=== PATIENT | female | born 1945 | race Caucasian/White ===

== ENCOUNTER 2017-07-07 19:53 | Observation (INO) | payer OTHER, MEDICARE ==
[~2017-07-07] VITALS: Ht 152.4 cm; Wt 64.0 kg
--- NOTE | 2017-07-07 20:10 | ED SYNCOPE COMPLAINT ---
History of Present Illness General Chief Complaint: Syncope and Near-Syncope Stated Complaint: BIBA SYNCOPE Source: patient, family Exam Limitations: no limitations Vital Signs & Intake/Output Vital Signs & Intake/Output Vital Signs Date Time Temp Pulse Resp B/P B/P Pulse O2 O2 Flow FiO2 Mean Ox Delivery Rate 07/08 0714 98.1 57 20 122/68 96 Room Air 07/08 0117 97.8 71 20 118/76 96 Room Air 07/08 0021 98.4 67 20 137/67 98 Room Air 07/07 2218 Room Air 07/07 2022 83 18 113/65 94 Room Air ED Intake and Output 07/08 0000 07/07 1200 Intake Total Output Total Balance Patient 141 lb Weight Weight Reported by Patient Measurement Method Allergies Coded Allergies: kiwi (ITCHY THROAT PER PT 07/07/17) Uncoded Allergies: PARSNIP (ITCHY THROAT PER PT 07/07/17) Triage Note: PT BIBA S/P SYNCOPLE EPISODE AT A RESTUARANT. PT WAS HAVING DINNER AND FELT BACK PAIN AND NAUSEOUS. PT GOT UP AT STARTED TO WALK TO [facility] ROOM. FELT LIGHT HEADED AND DIZZY GRABBED WALL AND PASSED OUT. PT FELL TO GROUND AND STRUCK HER HEAD. NO TRAUMA VISIBLE. PT STATES SHE THINKS SHE WAS PASSED OUT FOR 1 MIN AND STAFF WENT TO GET FAMILY. PT WAS PICKED UP AND SHE STATED TO FAMILY SHE WAS NAUSEOUS AND SO FAMILY BROUGHT HER TO BATHROOM VIOLENTLY VOMITTED AND PASSED OUT AGAIN FOR ABOUT 15 SECONDS PER FAMILY. WHEN PT CAME TO SHE VOMITTED AGAIN BUT DID NOT HAVE A SYNCOPLE EPISODE AGAIN. PT DENIES BLOOD THINNERS. PT DOES STATE THAT SHE WAS RECENTLY ON A DIURECTIC AND SHE VOIDED 2LBS OF URINE. PT WAS OUT OF COUNTRY IN [facility] AND RETURNED ON THURSDAY NIGHT. Triage Nurses Notes Reviewed? yes Timing: multiple episodes today Precipitating Factors: lightheadedness, NAUSEA, BACKPAIN HPI: PATIENT IS A 71 Y/O FEMALE, PMH OF BREAST CANCER, CHRONIC FATIGUE SYNDROME, PVC, HTN, AND HLD, PRESENTING FOR 2 EPISODES OF SYNCOPE AT DINNER. PATIENT STATES THAT SHE FELT NAUSEOUS AND HAD BACK PAIN PRIOR TO THE EVENT, SHE WALKED TO THE BATHROOM AND LOST CONSCIOUSNESS, HITTING HER HEAD ON THE FLOOR. PER HER SHE WAS UNCONSCIOUS FOR AROUND 1-2 MINUTES, WOKE UP AND VOMITED. SHE THEN PASSED OUT A SECOND TIME FOR 15 SECONDS AND WOKE UP AND VOMITED AGAIN. PER , PATIENT WAS A&O X3 IMMEDIATELY AFTER THE EVENT. SHE DENIES BLADDER/BOWEL INCONTINENCE AND SEIZURE-LIKE ACTIVITY SHE DENIES ANY CHEST PAIN, SOB, PALPITATIONS, HEADACHE, DIZZINESS, ABDOMINAL PAIN, DIARRHEA, CONSTIPATION, AND DYSURIA. PATIENT REPORTS THAT SHE RETURNS FROM [facility] ON THURSDAY AFTER A 2 WEEK STAY. SHE STATES THAT SHE FELT BLOATED SO SHE TOOK HER DIURETIC THURSDAY NIGHT WHICH SHE ONLY TAKES 4-5 TIMES A YEAR. SINCE THURSDAY SHE HAS HAD INCREASED URINATION AND HAS LOST 2 POUNDS. (Librado Lozano) Reconcile Medications Anastrozole 1 MG TABLET 1 TAB PO DAILY Breast CA (Reported) Aspirin (Aspirin*) 81 MG TAB.CHEW 1 TAB PO DAILY Heart Health Hydrochlorothiazide 12.5 MG CAPSULE 1 CAP PO DAILY HTN Rosuvastatin Calcium (Crestor) 10 MG TABLET 1 TAB PO DAILY 10 (Reported) Valsartan 80 MG TABLET 1 TAB PO DAILY HTN (Reported) Zolpidem Tartrate 10 MG TABLET 1 HTAB PO QPMP PRN Insomnia (Reported) (Idalia JASON,Blanca) Past History Travel History Traveled to [place] past [place] No Medical History Any Pertinent Medical History? see below for history Cardiovascular: hypertension, hyperlipidemia, PVC Cancer(s): breast cancer Surgical History Surgical History: lumpectomy Family History Hx Contributory? No (Librado Lozano) Review of Systems Review of Systems Constitutional: Reports: no symptoms. EENTM: Reports: no symptoms. Respiratory: Reports: no symptoms. Cardiovascular: Reports: no symptoms. GI: Reports: no symptoms. Genitourinary: Reports: no symptoms. Musculoskeletal: Reports: no symptoms. Skin: Reports: no symptoms. Neurological/Psychological: Reports: no symptoms. All Other Systems: Reviewed and Negative (Librado Lozano) Physical Exam Physical Exam General Appearance: well developed/nourished, no apparent distress, alert, awake , comfortable Head: atraumatic, normal appearance Eyes: Bilateral: normal appearance, PERRL, EOMI. Ears, Nose, Throat: normal ENT inspection, hearing grossly normal Neck: normal inspection, full range of motion, no midline tenderness Respiratory: normal breath sounds, chest non-tender, no respiratory distress, lungs clear Cardiovascular: regular rate/rhythm Gastrointestinal: normal bowel sounds, soft, non-tender, no organomegaly Back: normal inspection, normal range of motion, no vertebral tenderness Extremities: normal inspection Cranial Nerves: normal hearing, normal speech, PERRL Coordination/Gait: normal finger to nose Motor/Sensory: no motor/sensory deficits Skin: intact, normal color, warm/dry Core Measures ACS in differential dx? No CVA/TIA Diagnosis: No Sepsis Present: No Sepsis Focused Exam Completed? No (Librado Lozano) Progress Differential Diagnosis: AMI, aortic dissection, aortic valve, drug induced syncope, orthostatic syncope, other valvular disease, pacemaker malfunction, pericardial tamponade, pulmonary embolus, sick sinus syndrome, subarachnoid hem. , TIA/CVA, vasodepressor syncope Plan of Care: Orders Procedure Date/time Status Heart Healthy Diet 07/08 B Active EKG 07/08 0800 Active TROPONIN LEVEL 07/08 0622 Complete BASIC ELECTROLYTES PLUS BUN&CR 07/08 0600 Complete Vital Signs 07/08 0252 Active Teach/Educate 07/08 0252 Active Pain Treatment and Response 07/08 0252 Active Nutritional Intake, Monitor 07/08 0252 Active Isolation 07/08 0252 Active Intake & Output 07/08 0252 Active Patient Care Conference 07/08 0252 Active Activity/Ambulation 07/08 0252 Active LACTIC ACID 07/08 0220 Complete TROPONIN LEVEL 07/08 0200 Complete EKG 07/08 0200 Active Pathway - chart 07/08 0042 Active House Staff 07/08 0042 Active Code Status 07/08 0042 Active Lab Add-on Test 07/08 UNK Active VTE Mechanical Prophylaxis 07/08 UNK Active MISTAKE 07/08 UNK Active Precautions 07/08 UNK Active Nursing Misc 07/08 UNK Active ECHOCARDIOGRAM 07/08 UNK Active Patient Data 07/[address] in observation 07/07 2247 Active ED Holding Orders 07/07 2247 Active Vital Signs 07/07 2247 Active Code Status 07/07 2247 Complete Intake & Output 07/07 2217 Active D-DIMER 07/07 2101 Complete MISTAKE 07/07 2042 Active Add-on Test (ER Only) 07/07 204 Active MAGNESIUM 07/07 2020 Complete LACTIC ACID 07/07 2019 Complete Telemetry/Motor Coach Chauffeur 07/07 195 Active TROPONIN LEVEL 07/07 1955 Complete COMPREHENSIVE METABOLIC PANEL 07/07 1955 Complete CBC WITHOUT DIFFERENTIAL 07/07 1955 Complete EKG 07/07 1955 Active Current Medications Sig/Catalina Start time Last Medication Dose Stop Time Status Admin Atorvastatin Calcium 40 MG 1700 07/08 1700 AC (Lipitor) Enoxaparin Sodium 40 MG DAILY 07/08 1032 AC (Lovenox) Aspirin 81 MG DAILY 07/08 1000 AC 07/08 (Aspirin) 1011 Losartan Potassium 50 MG DAILY 07/08 1000 AC 07/08 (Cozaar) 1013 Laboratory Tests 07/08/17 0800: Troponin I Cancelled 07/08/17 0622: Anion Gap 10, Estimated GFR > 60, BUN/Creatinine Ratio 24.3, Troponin I 0.01 07/08/17 0530: Lactic Acid Cancelled 07/08/17 0418: Lactic Acid Cancelled 07/08/17 0215: Troponin I 0.02 07/08/17 0215: Lactic Acid 0.8 07/07/17 2020: Anion Gap 19 H, Estimated GFR 49 L, BUN/Creatinine Ratio 22.7, Glucose 91, Lactic Acid 3.5 H, Calcium 9.9, Magnesium 2.1, Total Bilirubin 0.2, AST 30, ALT 34, Alkaline Phosphatase 64, Troponin I < 0.01, Total Protein 6.9, Albumin 4.5, Globulin 2.4, Albumin/Globulin Ratio 1.9, D-Dimer High Sensitivty < 200, CBC w Diff NO MAN DIFF REQ, RBC 4.57, MCV 90.2, MCH 30.0, RDW 13.7, MPV 7.4, Gran % 62.5, Lymphocytes % 26.4, Monocytes % 8.3, Eosinophils % 2.4, Basophils % 0.4, Absolute Granulocytes 3.6, Absolute Lymphocytes 1.5, Absolute Monocytes 0.5, Absolute Eosinophils 0.1, Absolute Basophils 0, PUBS MCHC 33.3 Diagnostic Imaging: Viewed by Me: Radiology Read. Discussed w/RAD: Radiology Read. Radiology Impression: PATIENT: CONNIE MANUEL PRESENT AGE: 71 PATIENT ACCOUNT NO: [id number] : 44 LOCATION: [facility] ORDERING PHYSICIAN: Librado HUERTA SERVICE DATE: 07/07/17 EXAM TYPE : RAD - XRY-PORTABLE CHEST XRAY EXAMINATION: CHEST 1 VIEW CLINICAL INFORMATION: Syncope. COMPARISON: None. TECHNIQUE: An AP view of the chest is provided. FINDINGS: The cardiac silhouette is enlarged. The mediastinal and hilar contours are unremarkable. There are neither pleural effusions nor pneumothoraces. There are no consolidations. The osseous structures are unremarkable. IMPRESSION: No evidence for acute disease. Cardiomegaly without vascular congestion. DICTATED BY: Fabrice Weinstein MD DATE/TIME DICTATED:07/07/172057 AEROSPACE PHYSIOLOGICAL TECHNICIAN: KAREEM DATE/TIME TRANSCRIBED:07/07/172057 CONFIDENTIAL, DO NOT COPY WITHOUT APPROPRIATE AUTHORIZATION. <Electronically signed in Other Vendor System> SIGNED BY: Fabrice Weinstein MD 07/07/172107 Initial ED EKG: normal sinus rhythm, rate (83), nonspecific ST T wave chg (Librado Lozano) Departure Departure Condition: Stable Referrals: Saima JASON,Naresh Bowles (PCP/Family) Departure Forms: Customer Survey General Discharge Information Observation Note Rationale for Observation: My rational for observation is as follows . Patient will require cardiac telemetry. Serial troponins. IV fluids. Cardiac consultation. (Librado Lozano) Departure Time of Disposition: 2247 Disposition: STILL A PATIENT Clinical Impression Primary Impression: Syncope and collapse Prescriptions: Current Visit Scripts Hydrochlorothiazide 1 CAP PO DAILY #30 CAP Aspirin (Aspirin*) 1 TAB PO DAILY #30 TAB Observation Note Spoke With: Floridalma JASON PHD,Ruddy Bone Physician Advisor Notified: JACQUIE JASON,RUDDY [address]cc[address] Place Patient In: Non-ED OBS Care Area PA/DECK ENGINEER Co-Sign Statement Statement: ED Attending supervision documentation- [x] I saw and evaluated the patient. I have also reviewed all the pertinent lab results and diagnostic results. I agree with the findings and the plan of care as documented in the PA's/DECK ENGINEER's documentation. [x] I have reviewed the ED Record and agree with the PA's/DECK ENGINEER's documentation. [] Additions or exceptions (if any) to the PAs/DECK ENGINEER's note and plan are summarized below: [] (Idalia JASON,Blanca)
[2017-07-07 20:36] LABS: ABSOLUTE BASOPHIL COUNT 0 /CUMM (0.0-0.2); ABSOLUTE EOSINOPHIL COUNT 0.1 /CUMM (0.0-0.7); ABSOLUTE GRANULOCYTE CT 3.6 /CUMM (1.4-6.5); ABSOLUTE LYMPH COUNT 1.5 /CUMM (1.2-3.4); ABSOLUTE MONOCYTE COUNT 0.5 /CUMM (0.10-0.60); BASOPHIL % 0.4 % (0.0-2.0); EOSINOPHIL % 2.4 % (0-5); GRANULOCYTE % 62.5 % (42.2-75.2); HEMATOCRIT 41.3 % (37-47); MEAN CORPUSCULAR HGB CONC 33.3 G/DL (33.0-37.0); MEAN CORPUSCULAR VOLUME 90.2 FL (81.0-99.0); MEAN PLATELET VOLUME 7.4 FL (7.4-10.4); PLATELET COUNT 277 /CUMM (130-400); RBC DISTRIBUTION WIDTH 13.7 % (11.5-14.5); RED BLOOD CELL CT 4.57 /CUMM (4.20-5.40); WHITE BLOOD CELL COUNT 5.7 /CUMM (4.8-10.8)
--- NOTE | 2017-07-07 21:08 | RADIOLOGY REPORT ---
EXAMINATION: CHEST 1 VIEW CLINICAL INFORMATION: Syncope. COMPARISON: None. TECHNIQUE: An AP view of the chest is provided. FINDINGS: The cardiac silhouette is enlarged. The mediastinal and hilar contours are unremarkable. There are neither pleural effusions nor pneumothoraces. There are no consolidations. The osseous structures are unremarkable. IMPRESSION: No evidence for acute disease. Cardiomegaly without vascular congestion.
--- NOTE | 2017-07-07 22:54 | History & Physical ---
Tanya JASON,[facility] 07/07/17 7398: General Information and HPI MD Statement: I have seen and personally examined CONNIE MANUEL and documented this H&P. The patient is a 71 year old F who presented with a patient stated chief complaint of [syncope]. Source of Information: patient Exam Limitations: no limitations History of Present Illness: Mr. Manuel is a 71-year-old lady with past medical history significant for hypertension, hyperlipidemia, PVCs(with a loop recorder), fatigue syndrome, Shiatica and invasive ductal carcinoma of the breast status post lumpectomy and radiotherapy(2012) presents with 2 syncopal episodes this evening. Patient states that she was at a restaurant with her this evening when all of a sudden she felt nauseous and on her way to the restroom she felt dizzy, lost consciousness and fell backwards on the floor hitting her head. She regained consciousness after 1-2 minutes, went to the restroom and had one episode of vomiting. After that she had another episode of loss of consciousness lasting about 45 seconds to a minute and follow by another episode of vomiting after gaining consciousness. Patient denies any headache, vision changes, chest pain, palpitations, shortness of breath, seizure-like activity, tongue biting, bowel or bladder incontinence, any similar episodes in the past, recent diarrhea or change in medications. She did take 1 dose of hydrochlorothiazide on Thursday, states she felt bloated probably because of excessive drinking, after coming back from a 3 weeks vacation. She also had one glass of wine this evening at the dinner. Patient states she has a history of palpitations for which she follows up with Dr. Hedrick and had a loop recorder placed in March 2016. Her last visit with Dr. Hedrick was in May 2017 and was told to follow-up again in a year. Allergies/Medications Allergies: Coded Allergies: kiwi (ITCHY THROAT PER PT 07/07/17) Uncoded Allergies: PARSNIP (ITCHY THROAT PER PT 07/07/17) Home Med list Anastrozole 1 MG TABLET 1 TAB PO DAILY Breast CA (Reported) Aspirin (Aspirin*) 81 MG TAB.CHEW 1 TAB PO DAILY HEART HEALTH (Reported) Rosuvastatin Calcium (Crestor) 10 MG TABLET 1 TAB PO DAILY 10 (Reported) Valsartan 80 MG TABLET 1 TAB PO DAILY HTN (Reported) Zolpidem Tartrate 10 MG TABLET 1 HTAB PO QPMP PRN Insomnia (Reported) Past History Travel History Traveled to [place] past [place] No Medical History Cardiovascular: hypertension, hyperlipidemia, PVCs Musculoskeletal: sciatica Cancer(s): breast cancer Surgical History Surgical History: lumpectomy Past Family/Social History Family History Relations & Conditions if any FATHER, , Age 60+; Cause: Myocardial infarction. FH: myocardial infarction MOTHER, . FH: Parkinson's disease FHx: hypertension Psychosocial History Where do you live? Home Who Do You Live With? spouse Services at Home: None Smoking Status: Never Smoked ETOH Use: occasional use Illicit Drug Use: denies illicit drug use Functional Ability ADLs Independent: dressing, eating, toileting, bathing. Ambulation: independent IADLs Independent: shopping, housework, finances, food prep, telephone, transportation , medication admin. Review of Systems Review of Systems Constitutional: Reports: no symptoms. EENTM: Reports: no symptoms. Cardiovascular: Reports: no symptoms. Respiratory: Reports: no symptoms. GI: Reports: no symptoms. Genitourinary: Reports: no symptoms. Musculoskeletal: Reports: no symptoms. Skin: Reports: no symptoms. Neurological/Psychological: Reports: no symptoms. Hematologic/Endocrine: Reports: no symptoms. Immunologic/Allergic: Reports: no symptoms. All Other Systems: Reviewed and Negative Exam & Diagnostic Data Last 24 Hrs of Vital Signs/I&O Vital Signs Date Time Temp Pulse Resp B/P B/P Pulse O2 O2 Flow FiO2 Mean Ox Delivery Rate 07/08 0117 97.8 71 20 118/76 96 Room Air 07/08 0021 98.4 67 20 137/67 98 Room Air 07/07 2218 Room Air 07/07 2021 83 18 113/65 94 Room Air Intake & Output 07/08 0800 07/08 0000 07/07 1600 Intake Total Output Total Balance Patient 141 lb 141 lb Weight Weight Reported by Patient Measurement Method Physical Exam General Appearance Alert, Oriented X3, Cooperative, No Acute Distress Skin No Rashes, No Breakdown HEENT Atraumatic, PERRLA, EOMI, dry mucous membranes Neck Supple, No JVD, No thryomegaly Cardiovascular Regular Rate, Normal S1, Normal S2, No Murmurs Lungs Clear to Auscultation, Normal Air Movement Abdomen Normal Bowel Sounds, Soft, No Tenderness Neurological Normal Speech, Strength at 5/5 X4 Ext, Normal Tone, Sensation Intact, Cranial Nerves 3-12 NL Extremities No Clubbing, No Cyanosis, No Edema, Normal Pulses Last 24 Hrs of Labs/Jesse: Laboratory Tests 07/08/17 0215: Troponin I 0.02 07/08/17 0215: Lactic Acid 0.8 07/07/17 2020: Anion Gap 19 H, Estimated GFR 49 L, BUN/Creatinine Ratio 22.7, Glucose 91, Lactic Acid 3.5 H, Calcium 9.9, Magnesium 2.1, Total Bilirubin 0.2, AST 30, ALT 34, Alkaline Phosphatase 64, Troponin I < 0.01, Total Protein 6.9, Albumin 4.5, Globulin 2.4, Albumin/Globulin Ratio 1.9, D-Dimer High Sensitivty < 200, CBC w Diff NO MAN DIFF REQ, RBC 4.57, MCV 90.2, MCH 30.0, RDW 13.7, MPV 7.4, Gran % 62.5, Lymphocytes % 26.4, Monocytes % 8.3, Eosinophils % 2.4, Basophils % 0.4, Absolute Granulocytes 3.6, Absolute Lymphocytes 1.5, Absolute Monocytes 0.5, Absolute Eosinophils 0.1, Absolute Basophils 0, PUBS MCHC 33.3 Diagnostic Data CXR Results No acute pathology. Assessment/Plan Assessment: Mr. Manuel is a 71-year-old lady with past medical history significant for hypertension, hyperlipidemia, PVCs(with a loop recorder), fatigue syndrome, Shiatica and invasive ductal carcinoma of the breast status post lumpectomy and radiotherapy(2012) presents with 2 syncopal episodes this evening. A/P; 1. Syncope; likely secondary to dehydration, Feels her mouth is very dry and has Cr of 1.1. - We'll observe the patient on telemetry floor for 24-48 hours - Gentle IV fluid hydration - Neuro checks. - Cardiology consult - Neurology consult - Start antihypertensives from tomorrow morning. 2. Lactic acidosis; - Lactic acid level on admission was 3.5. - Trended down to 0.8 after IV fluids. 3. Chronic medical conditions; - Continue home medications. DVT prophylaxis; subcutaneous heparin Patient is full code As Ranked By This Provider Problem List: 1. Syncope and collapse Core Measures/Misc (03/08) Acute Coronary Syndrome ACS Diagnosis: No Congestive Heart Failure Congestive Heart Failure Diagnosis No Cerebrovascular Accident CVA/TIA Diagnosis: No VTE (View Protocol) VTE Risk Factors Age>40 No Mechanical VTE Prophylaxis d/t N/A MechProphylax Ordered No VTE Pharm Prophylaxis d/t NA PharmProphylax ordered Sepsis (View protocol) Sepsis Present: No Jeanie Hickman 07/08/17 1004: Resident Review Statement Resident Statement: examined this patient, discussed with mba intern, agreed with mba intern, discussed with family, reviewed EMR data (avail), discussed with nursing , discussed with case mgmt, reviewed images, amended to note Other Findings: 71-year-old woman was admitted for episode of syncopal attack. Past medical history: hypertension, hyperlipidemia, PVCs(with a loop recorder), fatigue syndrome, Shiatica and invasive ductal carcinoma of the breast status post lumpectomy and radiotherapy(2012) presents with 2 syncopal episodes this evening. In May 2017 Dr. Hedrick and everything according to patient was normal. According to patient she was at her usual state of health and [place] reports regular use of alcoholic beverages during the trip ( on average to glasses of wine every day) and was not hydrating herself as usual. Yesterday patient felt slightly bloated and took 1 dose of hydrochlorothiazide 12.5 mg ([id number]) and workout in the gym for an hour. During the rest of today patient felt slightly tired. Latest evening in a restaurant patient suddenly felt nauseous and lightheaded and dizzy and lost consciousness For almost 1 minutes. Reportedly without seizure activity, gained consciousness and afterwards she was fully over alert and oriented, without loss of continence. She felt severely nauseous and vomited once; passed out for the second time and regained consciousness in less than 1 minute. Patient denies any chest pain, palpitation, , cough, URI symptoms, seizure activities, tongue bite, prior similar history, history of migraine headache, history of seizure. Review of system: Fairly negative Vital signs: Pulse 83, respiratory rate 18, systolic blood pressure low 100s, 94 % in room air. Physical exam: General appearance: Comfortable. Head and neck: Atraumatic, no JVD, mucous membranes are dry. Heart: S1-S2 no murmur no gallop; lungs: Clear no wheezing no crackle; abdomen is soft; extremities: Symmetric 2+ peripheral pulses no edema. Patient data Sodium 143, potassium 3.6, BUN 25, creatinine 1.01, lactic acid 3.5, anion gap: 19 Chest x-ray negative; head CT scan without IV contrast: Negative EKG telemetry normal sinus rate and rhythm no acute ST segment change no QT prolongation Assessment and plan This is a 71-year-old woman with past medical history of hypertension, PVCs ( loop recorder was implanted) brought in by ambulance after 2 witnessed syncopal episodes. Reportedly patient used diuretics earlier today; in physical exam her mucous membranes were dry; systolic blood pressure was around low 100s. Additionally, her labs showed AGMA 2/2 lactic acidosis. List of active problems #1 syncope: Vasovagal syncope due to forceful vomiting in addition to components of dehydration as a results of [id number] use of diuretics. Need to rule out ACS and arrhythmia as other potential causes of syncope. Seizure for this patient is almost out of the equation. #2 AK I #3 AGMA secondary to lactic acidosis * Admit to telemetry for continuous heart monitoring as an observation * Obtain echo in the a.m. * Trending troponin and EKG to rule out ACS * Interrogated loop recorder to rule out arrhythmia at the time of syncope * Fall precaution * Gentle IV hydration * Repeat labs in the a.m. * Continue her antihypertensive medication in the a.m. with holding parameters for hypotension * Dr. Hedrick was already informed by ED Lovenox 40 units subcutaneous daily Pain pathway FC
[2017-07-08] MEDS ORDERED: VALSARTAN80 M1 PO (00:18)
[2017-07-08] MEDS ORDERED: ZOLPIDEM TARTRA10 M1 PO (00:18)
[2017-07-08] MEDS ORDERED: CRESTOR10 M1 PO (00:23)
[2017-07-08] MEDS ORDERED: ANASTROZOLE1 M1 PO (00:24)
[2017-07-08] MEDS ORDERED: AZITHROMYCIN250 M1 PO (00:24)
[2017-07-08] MEDS ORDERED: HYDROCHLOROTH12.5 M3 PO (00:34)
[2017-07-08] MEDS ORDERED: ASPIRIN81 M4 PO ×2 (00:39→16:24)
[2017-07-08 01:17] VITALS: BP 118/76
[2017-07-08 07:14] VITALS: BP 122/68
[2017-07-08 14:32] VITALS: BP 144/78
--- NOTE | 2017-07-08 16:26 | Patient Discharge Instructions ---
Discharge Instructions General Discharge Information You were seen/treated for: Syncope Special Instructions: Please follow up with your marketing consultant Ruddy Hedrick MD within 1-2 weeks of your discharge. Please take your medications as prescribed. Please return to emergency if symptoms worsen. Diet Continue normal diet: Yes Recommended Diet: Heart Healthy Activity Full Activity/No Limits: Yes Activity Self Limited: Yes Acute Coronary Syndrome Inclusion Criteria At DC or during hospital stay patient has or had the following: ACS DIAGNOSIS No Discharge Core Measures Meds if any: Prescribed or Continued at Discharge Meds if any: NOT Prescribed or Continued at Discharge Congestive Heart Failure Inclusion Criteria At DC or during hospital stay patient has or had the following: CHF DIAGNOSIS No Discharge Core Measures Meds if any: Prescribed or Continued at Discharge Meds if any: NOT Prescribed or Continued at Discharge Cerebrovascular accident Inclusion Criteria At DC or during hospital stay patient has or had the following: CVA/TIA Diagnosis No Discharge Core Measures Meds if any: Prescribed or Continued at Discharge Meds if any: NOT Prescribed or Continued at Discharge Venous thromboembolism Inclusion Criteria VTE Diagnosis No VTE Type NONE VTE Confirmed by (Test) NONE Discharge Core Measures - Per Current guidelines, there needs to be overlap - treatment for the first 5 days of Warfarin therapy. - If discharged on Warfarin prior to 5 days of - overlap therapy, the patient will need to be - assessed for post discharge needs including - *Post discharge parental anticoagulation - *Warfarin and/or parental anticoagulation education - *Follow up date to check INR post discharge At least 5 days overlap therapy as Inpatient No Meds if any: Prescribed or Continued at Discharge Note: Overlap Therapy is Warfarin and Anticoagulant Meds if any: NOT Prescribed or Continued at Discharge
--- NOTE | 2017-07-08 18:56 | Cons- Cardiology ---
General Information and HPI Consulting Request Date of Consult: 07/08/17 Requested By: Floridalma JASON PHD,Ruddy Bone Reason for Consult: syncope History of Present Illness: Ian is a 71 year old female with a history of hypertension, dyslipidemia and sleep apnea, who I initially saw for increased frequency of palpitations. In consideration of this patient's palpitations she has an implantable LINQ loop recorder in place. Ian was recently doing well enjoying the warm weather of [facility]. She did develop a right neck spasm or pinched nerve and has taken steroids for this. She also had some arthritic back pain. She did have some concern about gaining a few pounds and decided to take an old prescription of HCtZ to lose some weight. It was indeed effective and she lost a couple pounds. Yesterday, the patient was feeling a bit off and arose from her seat to walk to the bathroom. She felt nauseated and passed out for perhaps 30 seconds. She did receive IV fluids in the ambulance and in the ER before orthostatic blood pressure measurements were obtained which, by that time, were unremarkable. Her LINQ was interogated and showed no arrhythmias, heart block or bradycardia during this event. No events have been noted on telemetry. The patient did have an elevated creatinine and serum lactate level upon admission that go along with dehydration which have subsequently normalized. On previous interogations her LINQ has disclosed multiple PAC's and occasional PVC's that did correlate with symptoms. There is no evidence of atrial fibrillation. She has also had recordings that were not associated with any dysrhythmia. This ectopy is, in absoluted terms, not very frequent. Ian has been active without any palpitations for months and she is also free of any chest pain, pressure, tightness or shortness of breath. She records her blood pressures which are excellent. Her last stress test in 2009 showed an excellent exercise tolerance with non-specific ST changes on the ECG but normal nuclear imaging. Her EF was normal. At times her heart rate and blood pressure are elevated and at other times these measurements are lower. She records her BP and HR on a regular basis and it appears that the episodes of hypertension are rare. Her has noted low heart rates in the 40bpm range and she does have some occasional lightheadedness. We did not see any consistent bradycardia on her loop monitor. She is currently on a small dose of Valsartan. She only tends to note palpitations when she is feeling poorly such as when she has a viral syndrome although she has frequent unifocal ventricular ectopy that she cannot feel. She was previously on Atenolol which I took her off because it made her bradycardic, sleepy and tired. I believe that with the slower heart rate the patient was having some ventricular escape beats. Unfortunately, Ian has not been using her CPAP, which she finds uncomfortable. into her right leg. It appears to be more in the back itself and in the joints, rather than in the muscle itself. In that regard, I think it is unlikely to be related to Crestor. To review the patient's past history: Naina was initially seen for palpitations which typically were brief episodes that lasted for a few seconds to a minute at a time. They began and ended abruptly. I did try and suppress them by means of Atenolol 25 mg a day, which resulted in significant bradycardia. I did evaluate this situation by a 30 day event monitor, which showed an occasional PAC and occasional PVC's, but these were not quantitatively very prominent and most of the time when Ian did note palpitations, there was absolutely no dysrhythmia of any kind. Ian's last echo showed normal LV systolic function. Allergies/Medications Allergies: Coded Allergies: kiwi (ITCHY THROAT PER PT 07/07/17) Uncoded Allergies: PARSNIP (ITCHY THROAT PER PT 07/07/17) Home Med List: Anastrozole 1 MG TABLET 1 TAB PO DAILY Breast CA (Reported) Aspirin (Aspirin*) 81 MG TAB.CHEW 1 TAB PO DAILY HEART HEALTH (Reported) Rosuvastatin Calcium (Crestor) 10 MG TABLET 1 TAB PO DAILY 10 (Reported) Valsartan 80 MG TABLET 1 TAB PO DAILY HTN (Reported) Zolpidem Tartrate 10 MG TABLET 1 HTAB PO QPMP PRN Insomnia (Reported) Review of Systems Review of Systems: neck spasm and back pain Past History Travel History Traveled to [place] past 21 day No Medical History Blood Transfusion Hx: No Neurological: NONE EENT: NONE Cardiovascular: hypertension, hyperlipidemia, PVCs, palpitations Respiratory: obstructive sleep apnea Gastrointestinal: NONE Hepatic: NONE Renal: NONE Musculoskeletal: sciatica Psychiatric: NONE Endocrine: hyperparathyroidism Blood Disorders: NONE Cancer(s): breast cancer 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 FH: myocardial infarction MOTHER, . FH: Parkinson's disease FHx: hypertension Psychosocial History Where Do You Live? Home Who Do You Live With? spouse Services at Home: None Smoking Status: Never Smoked ETOH Use: occasional use Illicit Drug Use: denies illicit drug use Functional Ability ADLs Independent: dressing, eating, toileting, bathing. Ambulation: independent IADLs Independent: shopping, housework, finances, food prep, telephone, transportation , medication admin. Exam & Diagnostic Data Vital Signs and I&O Vital Signs Date Time Temp Pulse Resp B/P B/P Pulse O2 O2 Flow FiO2 Mean Ox Delivery Rate 07/08 1432 98.0 65 20 144/78 95 Room Air 07/08 0714 98.1 57 20 122/68 96 Room Air 07/08 0117 97.8 71 20 118/76 96 Room Air 07/08 0021 98.4 67 20 137/67 98 Room Air 07/07 2218 Room Air 07/07 2022 83 18 113/65 94 Room Air Intake & Output 07/08 1600 07/08 0800 07/08 0000 07/07 1600 07/07 0800 07/07 0000 Intake Total 900 110 Output Total 650 Balance 250 110 Intake, IV 500 10 Intake, Oral 400 100 Output, Urine 650 Patient 141 lb 141 lb Weight Weight Reported by Patient Measurement Method Physical Exam: General: WD/WN female in NAD; alert and oriented x 3 HEENT: NC/AT, PERRL, EOMI Neck: no JVD, no carotid bruit Heart: RRR w/o murmur Lungs: clear bilaterally ABdomen: soft, NT, +ve bowel sounds Extremities: no edema Assessment/Plan Assessment/Plan * This patient had clear signs of dehydration at the time of her presentation including a creatinine that was elevated beyond baseline and an elevated serum lactate level that would be explained by hypotension. She also reported nausea and lightheadedness upon standing with subsequent syncope and feeble pulse. I believe that this patient was dehydrated from the diuretic effects of taking HCTZ to lose weight. She was out to dinner and had one or two drinks that likely also had a diuretic effect. She had IV hydration prior to coming to the ER and by the time orthostatics were checked she had improved. There is no evidence to support a seizure, stroke/TIA, dysrhythmia or hypoglycemia. She is improved. There is no evidence to support neurocardiogenic syncope/vasovagal event based on interogation of her LINQ monitor. * The patient was advised to avoid dehydration and not take HCTZ unless prescribed. Please discharge this patient on Valsartan 80mg daily, Crestor and anastrazole as previously prescribed. Consult Acknowledgment - Thank you for your consult request.
--- NOTE | 2017-07-09 08:14 | ECHOCARDIOGRAM REPORT ---
CONNIE MANUEL Age: 71 : 1945 Gender: F Exam Date: 07/08/2017 10:10 Exam Location: [address] Ht (in): 60 Wt (lb): 141 BSA: 1.67 BP: 122 / 68 Ordering Physician: Jeanie Hickman MD Referring Physician: Jeanie Hickman MD Technologist: Joey Butcher [facility] Room Number: 189-2 Indications: PRESYNCOPE/SYNCOPE Rhythm: Sinus Technical Quality: good FINDINGS Left Ventricle Normal left ventricular size, wall thickness and systolic function with no obvious regional wall motion abnormalities. Normal left ventricular diastolic filling pattern for age. The ejection fraction is visually estimated at 70%. Right Ventricle The right ventricle is normal in size and function. Right Atrium The right atrium is normal in size. Left Atrium The left atrium is normal in size. The interatrial septum is intact. Mitral Valve The mitral valve is normal in structure and function. There is no mitral regurgitation. Aortic Valve Structurally normal aortic valve without significant sclerosis or stenosis. There is no aortic regurgitation. Tricuspid Valve The tricuspid valve is normal in structure and function. There is mild tricuspid regurgitation. Pulmonary artery systolic pressure is normal. Pulmonic Valve Structurally normal pulmonic valve. There is trace pulmonic regurgitation. Pericardium Normal pericardium without effusion. No pleural effusion. Great Vessels Normal aortic root dimension. The aortic arch and great vessels are well seen and are normal. CONCLUSIONS 1. Normal EF of 70%. 2. Mild tricupsid regurgitation. 3. Trace pulmonic regurgitation. Ruddy Hedrick M.D. (Electronically Signed) Final Date: 09 July 2017 08:13 MEASUREMENTS (Male / Female) Normal Values 2D ECHO LV Diastolic Diameter PLAX 4.4 cm 4.2 - 5.9 / 3.9 - 5.3 cm LV Systolic Diameter PLAX 2.6 cm 2.1 - 4.0 cm LV Fractional Shortening PLAX 40.9 % 25 - 46 % LV Ejection Fraction 2D Teich 71.9 % IVS Diastolic Thickness 0.9 cm LVPW Diastolic Thickness 0.9 cm LV Relative Wall Thickness 0.4 RV Internal Dim ED PLAX 3.0 cm 1.9 - 3.8 cm LVOT Diameter 1.9 cm Aortic Root Diameter 3.0 cm LA Systolic Diameter LX 3.2 cm 3.0 - 4.0 / 2.7 - 3.8 cm Ascending Aorta Diameter 3.3 cm DOPPLER AV Peak Velocity 118.0 cm/s AV Peak Gradient 5.6 mmHg AV Mean Velocity 72.5 cm/s AV Mean Gradient 3.0 mmHg AV Velocity Time Integral 28.4 cm LVOT Peak Velocity 70.7 cm/s LVOT Peak Gradient 2.0 mmHg LVOT Mean Velocity 46.5 cm/s LVOT Mean Gradient 1.0 mmHg LVOT Velocity Time Integral 20.7 cm LVOT Stroke Volume 58.7 cm AV Area Cont Eq vti 2.1 cm AV Area Cont Eq pk 1.7 cm MV Peak Velocity 82.6 cm/s MV Peak Gradient 2.7 mmHg MV Mean Velocity 49.2 cm/s MV Mean Gradient 1.0 mmHg Mitral E Point Velocity 60.7 cm/s Mitral A Point Velocity 63.2 cm/s Mitral E to A Ratio 1.0 MV PHT Velocity 77.1 cm/s MV Deceleration [place] 222.0 cm/s MV Pressure Half Time 104.2 ms MV Area PHT 2.1 cm MV Deceleration Time 380.0 ms TR Peak Velocity 243.0 cm/s TR Peak Gradient 23.6 mmHg Right Atrial Pressure 5.0 mmHg Pulmonary Artery Systolic Pressu 28.6 mmHg Right Ventricular Systolic Press 28.6 mmHg PV Peak Velocity 73.1 cm/s PV Peak Gradient 2.1 mmHg PV Mean Velocity 49.7 cm/s PV Mean Gradient 1.0 mmHg PV Velocity Time Integral 19.4 cm LV E' Lateral Velocity 13.3 cm/s Mitral E to LV E' Lateral Ratio 4.6 LV E' Septal Velocity 5.9 cm/s Mitral E to LV E' Septal Ratio 10.2
== END 2017-07-08 18:30 ==
LOC: ERH 19:53 → ERHI 22:47 → 1NO 22:47 → ENRESERV 23:25 → 1NO 07-08 01:03 → ENPENDDIS 07-08 17:55 → 1NO 07-08 18:30
PROVIDERS: Physician Assistant Medical
DX: R55 Syncope and collapse (principal); E87.2 Acidosis; E86.0 Dehydration; M54.30 Sciatica, unspecified side; E21.3 Hyperparathyroidism, unspecified; N17.9 Acute kidney failure, unspecified; I10 Essential (primary) hypertension; I49.3 Ventricular premature depolarization; R53.82 Chronic fatigue, unspecified; Z85.3 Personal history of malignant neoplasm of breast; R00.2 Palpitations; Z79.82 Long term (current) use of aspirin; G47.33 Obstructive sleep apnea (adult) (pediatric)
CPT/HCPCS: 6020; 36415; 71045; 82436; 93005; 93010; 93306; 96372; G0378; J1644; J1650; J3490; J7120